=== PATIENT | female | born 1990 | race Caucasian/White ===

== ENCOUNTER 2017-03-23 21:01 | Emergency (ER) | payer OTHER ==
--- NOTE | 2017-03-23 23:39 | ED NURSING NOTES ---
Clinical Report - Nurses [facility] [address] [place] [address] 03/23/2017 21:02 [id number] Triage time 21:57 Cricket 2016. Acuity: LEVEL 3. Chief Complaint: VOMITING. SEPSIS SCREEN: Sepsis Screen: negative. Negative (no infection suspected/documented). ESTRADA COMA SCORE: [place] Coma Scale: 15- eyes open spontaneously (4); best verbal response- oriented x 4 (5); best motor response- obeys commands (6). --22:00 Jessica Moreno 21:56 03/23/17. BP: 119/80. HR: 77. RR: 20. O2 saturation: 95% on room air. Temp: 98 F (oral). Pain level now: 0/10. --22:00 Jessica Moreno. Weight: 74.8 kg stated. Height/Length: 64 inches Per Patient. BMI: 28.3. --21:58 Jessica Moreno. Medications None. --21:58 Jessica Moreno. Medication/allergy information source: the patient. --22:00 Jessica Moreno. Allergies No Known Drug Allergy. --21:58 Jessica Moreno. History Arrived by private vehicle. Historian: patient. Accompanied by family. Primary physician (ace jefferson). Onset. (1 weeks). ( Patient reports vomiting for one week. She states that she has had episodes like this in the past. 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 Patient denies abdominal pain. She denies chance of . Patient reports she has not been able to keep food or fluid down for a week.). No fever. PAST MEDICAL HX: Immunizations: up-to-date. Last normal menstrual period now. SOCIAL HX: Former smoker, end date 12/2016. Occasional alcohol use. History of drug use: marijuana. No infectious disease exposure. ABUSE ASSESSMENT: No report of abuse. FALL RISK ASSESSMENT: Fall risk assessment completed. No fall risk identified. NUTRITIONAL RISK ASSESSMENT: The nutritional risk assessment revealed no deficiencies. FUNCTIONAL ASSESSMENT: Functional assessment: no impairments noted. LEARNING NEEDS ASSESSMENT: The learning needs assessment revealed no barriers. SKIN INTEGRITY ASSESSMENT: Skin integrity risk assessment completed. No skin integrity risk identified. --22:00 Jessica Moreno. PROBLEMS: Vomiting. Tendonitis. Exercise induced asthma. --21:58 Jessica Moreno. ADDITIONAL SURGERIES: no known surgeries. Interventions ID band on patient. To treatment room. --22:00 Jessica Moreno. PHYSICAL ASSESSMENT GENERAL / NEURO / PSYCH: Alert. Oriented X 4. Appears in no acute distress. HEENT: Pupils equal, round and reactive to light. Mucous membranes are pink. RESPIRATORY: Respirations not labored. CVS: Normal sinus rhythm noted. Pulses within normal limits. GI / : Abdomen soft and nontender. SKIN: Skin is warm and dry. Normal skin turgor. --22: Jessica Moreno. NURSING PROGRESS NOTES :03/23/17. Pulse oximeter and NIBP monitor placed on patient; monitor alarms on. Patient gowned. Reassurance given to the patient. Two patient identifiers checked. Call light placed in reach. Side rails up x 1. Bed placed in lowest position. Brakes of bed on. Patient ready for evaluation- chart flagged and ED physician notified. --22: Jessica Moreno 22:11 03/23/2017 Site #1 started via IV in the right antecubital space with an 20g angiocath, with aseptic technique and good blood return; one attempt. Blood drawn: rainbow set. Labeled in the presence of the patient and sent to the lab. Saline lock flushed with 10 mL saline. --22:26 Jessica Moreno 22:03/23/2017 Started bag #1 1000 mL IV Fluids IV NS (Saline); at 1000 mL/hr over 1 hour(s) via site #1. Allergies verified and confirmed 5 rights. IV patency established. IV site checked: no pain, redness, or swelling. IV flushed thoroughly pre- and post-medication administration. --: Jessica Moreno 22:03/23/2017 Zofran (Ondansetron HCl) IVP 4 mg given over 1 minute(s) via site #1. Allergies verified and confirmed 5 rights. IV patency established. IV site checked: no pain, redness, or swelling. IV flushed thoroughly pre- and post-medication administration. IVP given by RN. --22: Jessica Moreno Patient ID band checked for patient name and birthdate: patient confirmed. Instructions provided to collect clean catch urine and patient verbalized understanding. Clean catch urine collected with return of yellow-colored clear urine; sample sent to lab for urinalysis, culture and HCG. Specimen labeled in the presence of the patient. --22:27 Jessica Moreno Patient ID band checked for patient name and birthdate: patient confirmed. Blood samples drawn from the right antecubital space peripheral IV site with Vacutainer by nurse ; labeled in presence of the patient and sent to lab: rainbow set. Additional blood sent to lab. Line flushed with 10 mL normal saline post blood draw. --:27 Jessica Moreno K: 2.9. Nurse practitioner notified. --22:56 Jolanta Drummond RThaddeusNThaddeus ( no orders rcvd). --22:56 Jolanta Drummond R.NThaddeus ( Patient refusing potassium at this time, states she feels sick to her stomach. Patient given medications and will re-evaluate.). --23:06 Jessica Moreno 23:06 03/23/17. BP: 115/80. HR: 66. RR: 20. O2 saturation: 100% on room air. --23:06 Jessica Moreno 23:10 03/23/2017 Zofran (Ondansetron HCl) IVP 4 mg given over 1 minute(s) via site #1. Allergies verified and confirmed 5 rights. IV patency established. IV site checked: no pain, redness, or swelling. IV flushed thoroughly pre- and post-medication administration. IVP given by RN. --23:10 Jessica Moreno 23:12 03/23/2017 Zofran (Ondansetron HCl) IVP 4 mg given over 2 minute(s) via site #1. Allergies verified and confirmed 5 rights. IV patency established. IV site checked: no pain, redness, or swelling. IV flushed thoroughly pre- and post-medication administration. IVP given by RN. --23:27 Jessica Moreno 23:29 03/23/2017 K-DUR (Potassium Chloride Kristine ER) PO Tablets 40 meq given. Allergies verified and confirmed 5 rights. --23:29 Jessica Moreno EKG time: (23:19). EKG was performed and shown to the ED physician. --23:50 Casandra Ordoñez 23:30 03/23/2017 IV Fluids IV NS Discontinued: bag #1 completed. Total amount infused: 1000 mL. IV patency established. IV site checked: no pain, redness, or swelling. IV flushed thoroughly. --23:51 Jessica Moreno 23:54 03/23/2017 Reglan (Metoclopramide HCl) IVP 10 mg given. via site #1. Allergies verified and confirmed 5 rights. IV patency established. IV site checked: no pain, redness, or swelling. IV flushed thoroughly pre- and post-medication administration. IVP given by RN (given sivp). --23:59 Jesica Groves R.N. ( pt reports improvement in nausea "it's starting to go away" reglan being given sivp , pt denies pain, preparing pt for dispo home. s/o at bedside). --00:00 Jesica Groves R.N. Patient identifiers checked. Call light placed in reach. Side rails up. Bed placed in lowest position. Brakes of bed on. --00:01 Jesica Groves R.N. 00:00 03/24/17. BP: 132/94. HR: 68. RR: 15. O2 saturation: 96%. Pain level now: 0/10. --00:01 Jesica Groves R.N. DISPOSITION / DISCHARGE 00:10 03/24/2017 Site #1 removed upon discharge. Bandaid applied. --00:10 Jesica Grvoes R.N. Condition at departure: improved. No learning barriers present. Discharge instructions provided and reviewed with the patient. Reviewed medication(s) information. Prescription(s) given to the patient. Patient verbalized understanding. Written instructions provided in Malagasy. The patient was discharged by the nurse practitioner. She was discharged home and accompanied by spouse. She left the Emergency Department ambulatory and via private vehicle. Spouse driving. --00:11 Jesica Groves R.N. 00:09 03/24/17. BP: 127/72. HR: 81. RR: 15. O2 saturation: 100%. Temp: 97.8 F. Pain level now: 0/10. --00:11 Jesica Groves R.N. Locked/Released at 03/24/2017 6:47 by Jessica Moreno,
--- NOTE | 2017-03-23 23:39 | ED CLINICAL REPORT ---
Clinical Report - Physicians/Mid Levels [facility] [address] [place] [address] 03/23/2017 21:02 Patient: BHAVIN REMY Time Seen: 21:55; initial patient contact, initial documentation, patient care assumed. Arrived- By private vehicle. Historian- patient. HISTORY OF PRESENT ILLNESS Chief Complaint: VOMITING. This started about 1 weeks ago and is still present. It was abrupt in onset and has been constant. No recent travel. She has had nausea and vomiting. No diarrhea, black stools, bloody stools, constipation or flank pain. No history of possible bad food exposure, known contact with a sick individual or change in routine. Has not recently been camping or on antibiotics. The illness is described as moderate. 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 Similar symptoms previously: Chronically, as bad. Recent medical care: Not recently seen/assessed. REVIEW OF SYSTEMS No fever, difficulty with urination, dark urine, chest pain or difficulty breathing. No vaginal discharge. Denies current . All systems otherwise negative, except as recorded above. PAST HISTORY See nurses notes. PROBLEMS: Vomiting. Tendonitis. Exercise induced asthma. --21:58 Jessica Moreno. ADDITIONAL SURGERIES: no known surgeries. SOCIAL HISTORY Never smoker. Occasional alcohol use. History of heavy drug use: marijuana. No recent travel. Is a local resident. FAMILY HISTORY Negative. ADDITIONAL NOTES The nursing notes have been reviewed with agreement regarding the chief complaint, HPI, ROS, PMH and patient medications and allergies. PHYSICAL EXAM Vital Signs: 03/23/2017 21:56 BP: 119/80. HR: 77. RR: 20. O2 saturation: 95%. Temp: 98 F. Pain level now: 0/10. Have been reviewed as normal and appear to be correct. Appearance: Alert. Oriented X3. No acute distress. Eyes: Pupils equal, round and reactive to light. Eyes normal inspection. Neck: Normal inspection. Neck supple. CVS: Normal heart rate and rhythm. Heart sounds normal. Pulses normal. Respiratory: No respiratory distress. Breath sounds normal. Abdomen: Soft and nontender. Bowel sounds normal. No organomegaly. No mass. Back: Normal inspection. Skin: Skin warm and dry. Normal skin color. No rash. Normal skin turgor. Extremities: Extremities exhibit normal ROM. No lower extremity edema. Neuro: Oriented X 3. No motor deficit. No sensory deficit. LABS, X-RAYS, AND EKG EKG: EKG time: (2319). No acute process. No acute ischemia. Normal EKG. Rate: 62. Normal EKG. The study has been interpreted contemporaneously by me (and Dr Duron). The EKG appears to be a good tracing. Interpretation time: 232. Laboratory Tests: UA-Culture if indicated: (LARRY: 03/23/2017 22:05) ( [facility] 03/23/2017 22:35) Final results Test Result Flag Units (Reference) URINE COLOR YELLOW URINE APPEARANCE CLEAR URINE GLUCOSE NEGATIVE (NEGATIVE) URINE BILIRUBIN NEGATIVE (NEGATIVE) URINE KETONE NEGATIVE (NEGATIVE) URINE SPECIFIC GRAVITY <= 1.005 L (1.010-1.030) URINE PH 6.0 (5.0-8.0) URINE PROTEIN NEGATIVE (NEGATIVE) URINE UROBILINOGEN 0.2 EU/dL (0.2-1.0) URINE NITRITE NEGATIVE (NEGATIVE) URINE BLOOD NEGATIVE (NEGATIVE) URINE LEUK ESTERASE NEGATIVE (NEGATIVE) URINE RBC RARE rbc/hpf (0-1) URINE WBC 0-1 wbc/hpf (0-1) URINE EPITHELIAL CELLS 1-3 EPI/hpf (0-5) URINE BACTERIA NONE SEEN (NONE SEEN) URINE COMMENT CULT NOT INDICATED URINE CULTURES ARE SET-UP BASED ON THE FOLLOWING CRITERIA:POSITIVE NITRITEPOSITIVE LEUKOCYTE ESTERASEGREATER THAN 10 WHITE BLOOD CELLSMODERATE (2+) OR GREATER BACTERIA Urine: (LARRY: 03/23/2017 22:05) ( [facility] 03/23/[place] 22:31) Final results Test Result Flag Units (Reference) URINE NEGATIVE CBC w Diff: (LARRY: 03/23/2017 22:05) ( Msg[facility]d 03/23/2017 22:31) Final results Test Result Flag Units (Reference) WHITE BLOOD COUNT 12.7 H K/uL (4.5-11.5) RED BLOOD COUNT 5.43 H M/uL (4.00-5.20) HEMOGLOBIN 15.1 gm/dL (12.0-16.0) HEMATOCRIT 44.8 % (36.0-46.0) MEAN CELL VOLUME 83 fL (80-100) MEAN CORPUSCULAR HGB 28 pg (26-34) MEAN CORPUSCULAR HGB CONC 34 g/dL (31-37) RED CELL DISTRIBUTION WIDTH 12.1 % (11.6-14.8) PLATELET COUNT 354 K/uL (150-400) LYMPH % 24.7 L % (25-40) MONO % 4.0 % (3-14) GRANULOCYTE % 71.3 (53-90) Urine Drug Screen: (LARRY: 03/23/2017 22:05) ( Msg[facility] 03/23/2017 22:49) Final results Test Result Flag Units (Reference) AMPHETAMINE/METHAMPHETAMINE NEGATIVE (NEGATIVE) BARBITURATE NEGATIVE (NEGATIVE) BENZODIAZEPINE NEGATIVE (NEGATIVE) CANNABINOID POSITIVE H (NEGATIVE) COCAINE NEGATIVE (NEGATIVE) ECSTASY NEGATIVE (NEGATIVE) METHADONE NEGATIVE (NEGATIVE) OPIATE NEGATIVE (NEGATIVE) The urine drug screen is a qualitative screening test fordrug overdose and abuse. All screen results should beconsidered as presumptive.Drugs screened for are as follows:BenzodiazepinesCocaineAmphetamines/MetamphetaminesTHC (Tetrahydrocannabinol)OpiatesBarbituratesEcstasyMethadonePositive results are unconfirmed. For confirmation, notifythe lab for the specimen to be sent to the reference lab.All confirmations must be performed by a differentmethodology.The ingestion of natural herbal and plant productscontaining Ephedra/Ephedra metabolites can produce in urineone or more substances capable of cross reacting withamphetamine/methamphetamine immunoassays. These testsprovide a preliminary result only. A more specificalternative chemical method must be used to obtain aconfirmed analytical result. CMP: (LARRY: 03/23/2017 22:05) ( MsgRcvd 03/23/2017 22:53) Final results Test Result Flag Units (Reference) GLUCOSE 114 H mg/dL (70-110) BUN 11 mg/dL (7-18) CREATININE 0.9 mg/dL (0.6-1.3) Estimated GFR >60 mL/min Estimated GFR- >60 mL/min Note: Persistent reduction over 3 months in eGFR<60 mL/min/1.73 m2 defines CKD. Patients with eGFR values>=60 mL/min/1.73 m2 may also have CKD if evidence ofpersistent proteinuria. Additional information may be foundat www.kidney.org. SODIUM 129 L mmol/L (136-145) POTASSIUM 2.9 *L mmol/L (3.5-5.1) CRITICAL RESULTS CALLEDCalled to ALIRIO 03/23/17 2252Were 2 patient identifiers used? YWas the result read back? Y CHLORIDE 90 L mmol/L (98-107) CARBON DIOXIDE 32 mmol/L (21-32) CALCIUM 9.3 mg/dL (8.5-10.1) TOTAL PROTEIN 8.1 g/dL (6.4-8.2) ALBUMIN 4.4 g/dL (3.3-5.0) BILIRUBIN, TOTAL 1.1 H mg/dL (0.0-1.0) ALKALINE PHOSPHATASE 55 U/L (46-116) AST (SGOT) 15 U/L (15-37) ALT (SGPT) 20 U/L (12-78) LIPASE 298 U/L (73-393) AMYLASE 101 U/L (25-115) MAGNESIUM 2.3 mg/dL (1.8-2.4) . PROGRESS AND PROCEDURES Course of Care: 2338. no vomiting here, but pt c/o nausea since K pills. 03/23/2017 23:06 BP: 115/80. HR: 66. RR: 20. O2 saturation: 100%. Patient counseled in person regarding the patient's stable condition, test results and diagnosis. 23:34. Differential Diagnosis: I considered gastritis, peptic ulcer disease, gastroesophageal reflux disease, gastroparesis, Crohn's disease, ulcerative colitis, gastric outlet obstruction, colon cancer, gastroenteritis, cholecystitis, pancreatitis, viral syndrome, enterocolitis, urinary tract infection, hepatitis, sepsis, drugs, hyperthyroidism, hyperparathyroidism, and psychogenic etiology as a possible cause of vomiting in this patient. This is a partial list of diagnoses considered. Above considerations are based on history, physical exam, reassessment and laboratory data. Differential diagnosis was discussed with patient. Disposition: Discharged home in good and improved condition (23:38). Condition: good and stable. CLINICAL IMPRESSION Intractable vomiting with nausea and dehydration. No volume depletion. Not bilious. Hypokalemia INSTRUCTIONS Take clear liquids only (frequent sips) for the next 24 hours until better. May continue medications with sips only. Advance diet as tolerated. Avoid. Warnings: GENERAL WARNINGS: Return or contact your physician immediately if your condition worsens or changes unexpectedly, if not improving as expected, or if other problems arise. SPECIFICALLY, return if you develop pain in the abdomen or pelvis, fever, the inability to keep fluids down, blood in vomitus, blood in diarrhea, fainting or lightheadedness. Prescription Medications: Reglan 10 mg tablets: take 1 orally every 6 hours as needed for nausea or vomiting. Dispense twenty (20). No refills. Follow-up: Follow up with your doctor in about two days even if well. Call for an appointment. Summary of care provided to patient. Understanding of the discharge instructions verbalized by patient. (Electronically signed by Sangeeta Dickey A.R.N.P. 03/25/2017 19:02)
--- NOTE | 2017-03-23 23:39 | ED ORDER SUMMARY ---
..... Patient: BHAVIN REMY OrderSheet [facility] VisitID: [id number] [place] [address] 26y, F Registration Date/Time: 03/23/2017 ORDER SHEET Weight: 74.8 kg (stated) Allergies: No Known Drug Allergy GENERAL ORDERS: CBC w Diff Urgent (22:16 03/23/2017 HBivens A.R.N.P.) (Ack 22:17 AMcQuoid ER Tech1) (23:27 HSoule) CMP Urgent (22:16 03/23/2017 HBivens A.R.N.P.) (Ack 22:17 AMcQuoid ER Tech1) (23:27 HSoule) UA-Culture if indicated Urgent (22:16 03/23/2017 HBivens A.R.N.P.) (Ack 22:17 AMcQuoid ER Tech1) (23:27 HSoule) Urine Drug Screen Urgent (22:16 03/23/2017 HBivens A.R.N.P.) (Ack 22:17 AMcQuoid ER Tech1) (23:27 HSoule) Urine Urgent (22:16 03/23/2017 HBivens A.R.N.P.) (Ack 22:17 AMcQuoid ER Tech1) (23:27 HSoule) Amylase Urgent (22:16 03/23/2017 HBivens A.R.N.P.) (Ack 22:17 AMcQuoid ER Tech1) (23:27 HSoule) Lipase Urgent (22:16 03/23/2017 HBivens A.R.N.P.) (Ack 22:17 AMcQuoid ER Tech1) (23:27 HSoule) EKG - ER Stat (22:52 03/23/2017 HBivens A.R.N.P.) (Ack 22:56 AMcQuoid ER Tech1) (23:27 HSoule) MEDICATION ORDERS: K-Dur PO 40 meq (Do not crush or chew, NOW) (22:52 03/23/2017 HBivens A.R.N.P.) (Ack 22:59 HSoule) (Hold 23:05 HSoule) (23:29 HSoule) IV FLUIDS: IV NS : initial bolus 1000 mL (1000 mL/hr), then none - (NOW) (22:15 03/23/2017 HBivens A.R.N.P.) (22:26 HSoule) Zofran IV 4 mg (NOW) (22:16 03/23/2017 HBivens A.R.N.P.) (22:26 HSoule) IV Saline Lock (22:16 03/23/2017 HBivens A.R.N.P.) (22:26 HSoule) Zofran IV 4 mg (NOW) (23:06 03/23/2017 HBivens A.R.N.P.) (23:10 HSoule) Reglan IV 10 mg (NOW) (23:39 03/23/2017 HBivens A.R.N.P.) (Ack 23:50 HSoule) (23:59 Anuja R.N.) ORDER SHEET NOTES: [Electronically signed by Jessica Moreno (06:47 03/24/2017)] [Electronically signed by Sangeeta Dickey A.R.N.P. (19:02 03/25/2017)] [Electronically locked/signed by Jessica Moreno (06:47 03/24/2017)]
--- NOTE | 2017-03-23 23:39 | ED ORDER SUMMARY ---
..... Patient: BHAVIN REMY OrderSheet [facility] VisitID: [id number] [place] [address] 26y, F Registration Date/Time: 03/23/2017 ORDER SHEET Weight: 74.8 kg (stated) Allergies: No Known Drug Allergy GENERAL ORDERS: CBC w Diff Urgent (22:16 03/23/2017 HBivens A.R.N.P.) (Ack 22:17 AMcQuoid ER Tech1) (23:27 HSoule) CMP Urgent (22:16 03/23/2017 HBivens A.R.N.P.) (Ack 22:17 AMcQuoid ER Tech1) (23:27 HSoule) UA-Culture if indicated Urgent (22:16 03/23/2017 HBivens A.R.N.P.) (Ack 22:17 AMcQuoid ER Tech1) (23:27 HSoule) Urine Drug Screen Urgent (22:16 03/23/2017 HBivens A.R.N.P.) (Ack 22:17 AMcQuoid ER Tech1) (23:27 HSoule) Urine Urgent (22:16 03/23/2017 HBivens A.R.N.P.) (Ack 22:17 AMcQuoid ER Tech1) (23:27 HSoule) Amylase Urgent (22:16 03/23/2017 HBivens A.R.N.P.) (Ack 22:17 AMcQuoid ER Tech1) (23:27 HSoule) Lipase Urgent (22:16 03/23/2017 HBivens A.R.N.P.) (Ack 22:17 AMcQuoid ER Tech1) (23:27 HSoule) EKG - ER Stat (22:52 03/23/2017 HBivens A.R.N.P.) (Ack 22:56 AMcQuoid ER Tech1) (23:27 HSoule) MEDICATION ORDERS: K-Dur PO 40 meq (Do not crush or chew, NOW) (22:52 03/23/2017 HBivens A.R.N.P.) (Ack 22:59 HSoule) (Hold 23:05 HSoule) (23:29 HSoule) IV FLUIDS: IV NS : initial bolus 1000 mL (1000 mL/hr), then none - (NOW) (22:15 03/23/2017 HBivens A.R.N.P.) (22:26 HSoule) Zofran IV 4 mg (NOW) (22:16 03/23/2017 HBivens A.R.N.P.) (22:26 HSoule) IV Saline Lock (22:16 03/23/2017 HBivens A.R.N.P.) (22:26 HSoule) Zofran IV 4 mg (NOW) (23:06 03/23/2017 HBivens A.R.N.P.) (23:10 HSoule) Reglan IV 10 mg (NOW) (23:39 03/23/2017 HBivens A.R.N.P.) (Ack 23:50 HSoule) (23:59 Anuja R.N.) ORDER SHEET NOTES: [Electronically signed by Jessica Moreno (06:47 03/24/2017)] [Electronically signed by Sangeeta Dickey A.R.N.P. (19:02 03/25/2017)] [Electronically locked/signed by Jessica Moreno (06:47 03/24/2017)]
--- NOTE | 2017-03-25 19:02 | ED MAR SUMMARY ---
..... Medication Administration Record Located Within [facility] [address] [place] [address] Patient: BHAVIN REMY Visit ID: [id number] 26y, F Weight: 74.8 kg Height/Length: 64 in BMI: 28.3 ALLERGIES: No Known Drug Allergy Start 22:03/23/2017 Jessica Moreno,, Stop 23:30 03/23/2017 Jessica Moreno, Medication Administered: IV NS (SALINE), Dose: IV Fluids over 1 hour(s), Rate: 1000 mL/hr, Dispensed: 1000 mL bag, Site: #1 right AC. Medication Ordered: IV NS : initial bolus 1000 mL (1000 mL/hr), then none - (NOW). Given 22:03/23/2017 Jessica Moreno, Medication Administered: ZOFRAN [IVP] (ONDANSETRON HCL), Dose: 4 mg IVP over 1 minute(s), Site: #1 right AC. Medication Ordered: Zofran IV 4 mg (NOW). Given 23:03/23/2017 Jessica Moreno, Medication Administered: ZOFRAN [IVP] (ONDANSETRON HCL), Dose: 4 mg IVP over 1 minute(s), Site: #1 right AC. Medication Ordered: Zofran IV 4 mg (NOW). Given 23:12 03/23/2017 Jessica Moreno, Medication Administered: ZOFRAN [IVP] (ONDANSETRON HCL), Dose: 4 mg IVP over 2 minute(s), Site: #1 right AC. Medication Ordered: Zofran IV 4 mg (NOW). Given 23:29 03/23/2017 Jessica Moreno, Medication Administered: K-DUR [PO] (POTASSIUM CHLORIDE SHEREE ER), Dose: 40 meq Tablets PO. Medication Ordered: K-Dur PO 40 meq (Do not crush or chew, NOW). Given 23:54 03/23/2017 Jesica Groves R.N. Medication Administered: REGLAN [IVP] (METOCLOPRAMIDE HCL), Dose: 10 mg IVP, Site: #1 right AC. Medication Ordered: Reglan IV 10 mg (NOW).
--- NOTE | 2017-03-25 19:02 | ED MAR SUMMARY ---
..... Medication Administration Record [facility] [address] [place] [address] Patient: BHAVIN REMY Visit ID: [id number] 26y, F Weight: 74.8 kg Height/Length: 64 in BMI: 28.3 ALLERGIES: No Known Drug Allergy Start 22:03/23/2017 Jessica Moreno,, Stop 23:30 03/23/2017 Jessica Moreno, Medication Administered: IV NS (SALINE), Dose: IV Fluids over 1 hour(s), Rate: 1000 mL/hr, Dispensed: 1000 mL bag, Site: #1 right AC. Medication Ordered: IV NS : initial bolus 1000 mL (1000 mL/hr), then none - (NOW). Given 22:03/23/2017 Jessica Moreno, Medication Administered: ZOFRAN [IVP] (ONDANSETRON HCL), Dose: 4 mg IVP over 1 minute(s), Site: #1 right AC. Medication Ordered: Zofran IV 4 mg (NOW). Given 23:03/23/2017 Jessica Moreno, Medication Administered: ZOFRAN [IVP] (ONDANSETRON HCL), Dose: 4 mg IVP over 1 minute(s), Site: #1 right AC. Medication Ordered: Zofran IV 4 mg (NOW). Given 23:12 03/23/2017 Jessica Moreno, Medication Administered: ZOFRAN [IVP] (ONDANSETRON HCL), Dose: 4 mg IVP over 2 minute(s), Site: #1 right AC. Medication Ordered: Zofran IV 4 mg (NOW). Given 23:29 03/23/2017 Jessica Moreno, Medication Administered: K-DUR [PO] (POTASSIUM CHLORIDE SHEREE ER), Dose: 40 meq Tablets PO. Medication Ordered: K-Dur PO 40 meq (Do not crush or chew, NOW). Given 23:54 03/23/2017 Jesica Groves R.N. Medication Administered: REGLAN [IVP] (METOCLOPRAMIDE HCL), Dose: 10 mg IVP, Site: #1 right AC. Medication Ordered: Reglan IV 10 mg (NOW).
--- NOTE | 2017-03-25 19:02 | ED MED RECONCILIATION SUMMARY ---
Patient: BHAVIN REMY Medication Reconciliation Report [facility] VisitID: [id number] [address] [place] [address] 26y, F Registration Date/Time: 03/23/2017 Weight: 74.8 kg Height/Length: 64 in. BMI: 28.3 ALLERGIES: No Known Drug Allergy The patient's Home Medications are listed below: NONE. The source(s) of the original Home Medication information: patient The following Medications were given to the patient in the Emergency Department: IV NS IV Fluids bolus 0, then 1000 mL/hr, administered: 03/23/2017 10:26:00 PM Zofran [IVP] IVP 4 mg, administered: 03/23/2017 10:26:00 PM Zofran [IVP] IVP 4 mg, administered: 03/23/2017 11:10:00 PM Zofran [IVP] IVP 4 mg, administered: 03/23/2017 11:12:00 PM K-DUR [PO] PO 40 meq, administered: 03/23/2017 11:29:00 PM Reglan [IVP] IVP 10 mg, administered: 03/23/2017 11:54:00 PM The following Medications were prescribed to the patient: Reglan 10 mg tablets: take 1 orally every 6 hours as needed for nausea or vomiting. Dispense twenty (20). No refills. -- Sangeeta Dickey A.R.N.P.
--- NOTE | 2017-03-25 19:02 | ED DISCHARGE INSTRUCTIONS ---
Patient: BHAVIN REMY General Instructions [facility] VisitID: [id number] [place] [address] 26y, F Registration Date/Time: 03/23/2017 Intractable vomiting with nausea and dehydration. No volume depletion. Not bilious. Hypokalemia INSTRUCTIONS Take clear liquids only (frequent sips) for the next 24 hours until better. May continue medications with sips only. Advance diet as tolerated. Avoid. Warnings: GENERAL WARNINGS: Return or contact your physician immediately if your condition worsens or changes unexpectedly, if not improving as expected, or if other problems arise. SPECIFICALLY, return if you develop pain in the abdomen or pelvis, fever, the inability to keep fluids down, blood in vomitus, blood in diarrhea, fainting or lightheadedness. Prescription Medications: Reglan 10 mg tablets: take 1 orally every 6 hours as needed for nausea or vomiting. Dispense twenty (20). No refills. Follow-up: Follow up with your doctor in about two days even if well. Call for an appointment. Summary of care provided to patient. Understanding of the discharge instructions verbalized by patient. ADDITIONAL INFORMATION Vomiting [6Yr-Adult] Vomiting is a common symptom that may be due to different causes. These include gastroenteritis ("stomach flu"), food poisoning and gastritis. There are other more serious causes of vomiting which may be hard to diagnose early in the illness. Therefore, it is important to watch for the warning signs listed below. The main danger from repeated vomiting is dehydration. This is due to excess loss of water and minerals from the body. When this occurs, body fluids must be replaced. Home Care: If symptoms are severe, rest at home for the next 24 hours. You may use acetaminophen (Tylenol) or ibuprofen (Motrin, Advil) to control fever, unless another medicine was prescribed. [NOTE : If you have chronic liver or kidney disease or ever had a stomach ulcer or GI bleeding, talk with your doctor before using these medicines.] (Aspirin should never be used in anyone under 18 years of age who is ill with a fever. It may cause severe liver damage.) Avoid tobacco and alcohol use, which may worsen your symptoms. If medicines for vomiting were prescribed, take as directed. Once vomiting stops, then follow these guidelines: During The First 12-24 Hours follow the diet below: FRUIT JUICES: Apple, grape juice, clear fruit drinks, and electrolyte replacement drinks. BEVERAGES: Soft drinks without caffeine; mineral water (plain or flavored), decaffeinated tea and coffee. SOUPS: Clear broth, consomm and bouillon DESSERTS: Plain gelatin, popsicles and fruit juice bars. As you feel better, you may add 6-8 ounces of yogurt per day. During The Next 24 Hours you may add the following to the above: Hot cereal, plain toast, bread, rolls, crackers Plain noodles, rice, mashed potatoes, chicken noodle or rice soup Unsweetened canned fruit (avoid pineapple), bananas Limit caffeine and chocolate. No spices or seasonings except salt. During The Next 24 Hours Gradually resume a normal diet, as you feel better and your symptoms lessen. Follow Up with your doctor as advised if you are not improving over the next 2-3 days. Get Prompt Medical Attention if any of the following occur: Constant right-sided lower abdominal pain or increasing general abdominal pain Continued vomiting (unable to keep liquids down) for 24 hours Frequent diarrhea (more than 5 times a day); blood (red or black color) or mucus in diarrhea Reduced urine output or extreme thirst Weakness, dizziness or fainting Unusually drowsy or confused Fever of 100.4F (38C) oral or higher, not better with fever medication Yellow color of the eyes or skin Hypokalemia Hypokalemia means a low level of potassium in the blood. This most often occurs in patients who take diuretics (water pills). It can also occur due to severe vomiting or diarrhea. A mild case usually causes no symptoms. It is only found with blood testing. More severe potassium loss causes generalized weakness, muscle or abdominal cramping, heart palpitations (rapid or irregular heartbeats) and low blood pressure. Home Care: 1) Take any potassium supplements prescribed. 2) Eat foods rich in potassium. The highest amount is found in artichoke, baked potatoes, spinach, cantaloupe, honeydew melon, cod, halibut, salmon, and scallops. White, red, or good beans are also very good sources. A modest amount is found in orange juice, bananas, carrots, and tomato juice. 3) Certain types of diuretics (water pills), such as Lasix (furosemide), require that you take potassium supplements for as long as you take the diuretic pills. If you are taking a diuretic, discuss the need for potassium supplements with your doctor. Follow Up with your doctor for a repeat blood test within the next week or as advised by our staff. Get Prompt Medical Attention if any of the following occur: -- Increased weakness -- Feeling dizzy -- Irregular heartbeat, extra beats or very fast heart rate -- Fainting spell Clear Liquid Diet Clear liquids are any liquid that you can see through as well as those that are very easy to digest. This is used while the body is recovering from irritation or infection of the stomach or intestinal tract. It may also be used before special procedures or surgery. This diet is to be used no more than three days. You may include the following items. Adults Adults should drink a total of 23 quarts of liquid per day. It may be easier to drink small frequent servings rather than a few large ones. Liquids can include: Fruit juices.Strained orange juice or lemonade (no pulp), apple, grape and cranberry juice, clear fruit drinks, sports drinks Beverages.Sport drinks, sodas, mineral water (plain or flavored), tea, black coffee, liquid gelatin (add twice the recommended amount of water) Soups.Clear broth, consomm, bouillon Desserts.Plain gelatin, popsicles, fruit juice bars Children Over 2 years old The following liquids are acceptable for children over age 2: Fruit juices.Strained orange juice or lemonade (no pulp), apple, grape and cranberry juice, clear fruit drinks Beverages. Sports drinks, sodas, mineral water (plain or flavored), tea, liquid gelatin (add twice the recommended amount of water) Soups. Clear broth, consomm, bouillon Desserts. Plain gelatin, popsicles, fruit juice bars Children under 2 years old Oral rehydration fluids such are available at drug stores and most grocery stores without a prescription. Toole Diet A bland diet is used for patients with an upset stomach. It consists of foods that are mild and easy to digest. It is better to eat small frequent meals rather than three large meals a day. BEVERAGES OK: Fruit juices, non-caffeinated teas and coffee, non-carbonated mackey AVOID: Carbonated beverage, caffeinated tea and coffee, all alcoholic beverages BREAD OK: Refined white, wheat or rye bread, ying or soda crackers, Niyah toast, plain rolls, bagels AVOID: Whole-grain bread CEREAL OK: Refined cereals: cooked or ready to eat AVOID: Whole grain cereals and granola, or those containing bran, seeds or nuts DESSERTS OK: Peanut butter and all others except those to "avoid" AVOID: Chocolate, cocoa, coconut, popcorn, nuts, seeds, jam, marmalade FRUITS OK: Canned, cooked, frozen or fresh fruits without seeds or tough skin AVOID: Olives, skin and seeds of fruit MEATS OK: All fresh or preserved meat, fish and fowl AVOID: Any that are prepared with those spices to "avoid" CHEESE & EGGS OK: Eggs, cottage cheese, cream cheese, other cheeses AVOID: All cheeses made with those spices to "avoid" POTATOES & PASTA OK: Potato, rice, macaroni, noodles, spaghetti AVOID: None SOUPS OK: All soups without heavy seasoning AVOID: Soups made with those spices to "avoid" VEGETABLES OK: Canned, cooked, fresh or frozen mildly flavored vegetables without seeds, skins or coarse fiber AVOID: Vegetables prepared with those spices to "avoid"; skin and seeds of vegetables and those with coarse fiber SPICES OK: Salt, lemon and enterprise juice, vinegar, all extracts, francia, cinnamon, thyme, mace, allspice, paprika AVOID: [place] powder, cloves, pepper, seed spices, garlic, gravy pickles, highly seasoned salad dressings Clear Liquid Diet Clear liquids are any liquid that you can see through as well as those that are very easy to digest. This is used while the body is recovering from irritation or infection of the stomach or intestinal tract. It may also be used before special procedures or surgery. This diet is to be used no more than three days. You may include the following items. Adults Adults should drink a total of 23 quarts of liquid per day. It may be easier to drink small frequent servings rather than a few large ones. Liquids can include: Fruit juices.Strained orange juice or lemonade (no pulp), apple, grape and cranberry juice, clear fruit drinks, sports drinks Beverages.Sport drinks, sodas, mineral water (plain or flavored), tea, black coffee, liquid gelatin (add twice the recommended amount of water) Soups.Clear broth, consomm, bouillon Desserts.Plain gelatin, popsicles, fruit juice bars Children Over 2 years old The following liquids are acceptable for children over age 2: Fruit juices.Strained orange juice or lemonade (no pulp), apple, grape and cranberry juice, clear fruit drinks Beverages. Sports drinks, sodas, mineral water (plain or flavored), tea, liquid gelatin (add twice the recommended amount of water) Soups. Clear broth, consomm, bouillon Desserts. Plain gelatin, popsicles, fruit juice bars Children under 2 years old Oral rehydration fluids such are available at drug stores and most grocery stores without a prescription. Metoclopramide Hydrochloride Oral tablet What is this medicine? METOCLOPRAMIDE (met oh kloe PRA mide) is used to treat the symptoms of gastroesophageal reflux disease (GERD) like heartburn. It is also used to treat people with slow emptying of the stomach and intestinal tract. How should I use this medicine? Take this medicine by mouth with a glass of water. Follow the directions on the prescription label. Take this medicine on an empty stomach, about 30 minutes before eating. Take your doses at regular intervals. Do not take your medicine more often than directed. Do not stop taking except on the advice of your doctor or health respiratory care instructor. A special MedGuide will be given to you by the pharmacist with each prescription and refill. Be sure to read this information carefully each time. Talk to your responder regarding the use of this medicine in children. Special care may be needed. What side effects may I notice from receiving this medicine? Side effects that you should report to your doctor or health respiratory care instructor as soon as possible: allergic reactions like skin rash, itching or hives, swelling of the face, lips, or tongue abnormal production of milk in females breast enlargement in both males and females change in the way you walk difficulty moving, speaking or swallowing drooling, lip smacking, or rapid movements of the tongue excessive sweating fever involuntary or uncontrollable movements of the eyes, head, arms and legs irregular heartbeat or palpitations muscle twitches and spasms unusually weak or tired Side effects that usually do not require medical attention (report to your doctor or health respiratory care instructor if they continue or are bothersome): change in sex drive or performance depressed mood diarrhea difficulty sleeping headache menstrual changes restless or nervous What may interact with this medicine? acetaminophen cyclosporine digoxin medicines for blood pressure medicines for diabetes, including insulin medicines for hay fever and other allergies medicines for depression, especially an Monoamine Oxidase Inhibitor (MAOI) medicines for Parkinson's disease, like levodopa medicines for sleep or for pain tetracycline What if I miss a dose? If you miss a dose, take it as soon as you can. If it is almost time for your next dose, take only that dose. Do not take double or extra doses. Where should I keep my medicine? Keep out of the reach of children. Store at room temperature between 20 and 25 degrees C (68 and 77 degrees F). Protect from light. Keep container tightly closed. Throw away any unused medicine after the expiration date. What should I tell my health care provider before I take this medicine? They need to know if you have any of these conditions: breast cancer depression diabetes heart failure high blood pressure kidney disease liver disease Parkinson's disease or a movement disorder pheochromocytoma seizures stomach obstruction, bleeding, or perforation an unusual or allergic reaction to metoclopramide, procainamide, sulfites, other medicines, foods, dyes, or preservatives or trying to get breast-feeding What should I watch for while using this medicine? It may take a few weeks for your stomach condition to start to get better. However, do not take this medicine for longer than 12 weeks. The longer you take this medicine, and the more you take it, the greater your chances are of developing serious side effects. If you are an elderly patient, a female patient, or you have diabetes, you may be at an increased risk for side effects from this medicine. Contact your doctor immediately if you start having movements you cannot control such as lip smacking, rapid movements of the tongue, involuntary or uncontrollable movements of the eyes, head, arms and legs, or muscle twitches and spasms. Patients and their families should watch out for worsening depression or thoughts of suicide. Also watch out for any sudden or severe changes in feelings such as feeling anxious, agitated, panicky, irritable, hostile, aggressive, impulsive, severely restless, overly excited and hyperactive, or not being able to sleep. If this happens, especially at the beginning of treatment or after a change in dose, call your doctor. Do not treat yourself for high fever. Ask your doctor or health respiratory care instructor for advice. You may get drowsy or dizzy. Do not drive, use machinery, or do anything that needs mental alertness until you know how this drug affects you. Do not stand or sit up quickly, especially if you are an older patient. This reduces the risk of dizzy or fainting spells. Alcohol can make you more drowsy and dizzy. Avoid alcoholic drinks. You have been given the following additional information: Vomiting (6Y-Adult) Hypokalemia Diet, Clear Liquid Diet, Toole (Adult) Diet, Clear Liquid Metoclopramide Hydrochloride Oral tablet (Electronically signed by Sangeeta Dickey A.R.N.P. 03/25/2017 19:02)
--- NOTE | 2017-03-25 19:02 | ED MED RECONCILIATION SUMMARY ---
Patient: BHAVIN REMY Medication Reconciliation Report [facility] VisitID: [id number] [address] [place] [address] 26y, F Registration Date/Time: 03/23/2017 Weight: 74.8 kg Height/Length: 64 in. BMI: 28.3 ALLERGIES: No Known Drug Allergy The patient's Home Medications are listed below: NONE. The source(s) of the original Home Medication information: patient The following Medications were given to the patient in the Emergency Department: IV NS IV Fluids bolus 0, then 1000 mL/hr, administered: 03/23/2017 10:26:00 PM Zofran [IVP] IVP 4 mg, administered: 03/23/2017 10:26:00 PM Zofran [IVP] IVP 4 mg, administered: 03/23/2017 11:10:00 PM Zofran [IVP] IVP 4 mg, administered: 03/23/2017 11:12:00 PM K-DUR [PO] PO 40 meq, administered: 03/23/2017 11:29:00 PM Reglan [IVP] IVP 10 mg, administered: 03/23/2017 11:54:00 PM The following Medications were prescribed to the patient: Reglan 10 mg tablets: take 1 orally every 6 hours as needed for nausea or vomiting. Dispense twenty (20). No refills. -- Sangeeta Dickey A.R.N.P.
== END 2017-03-24 00:12 | disposition home or self-care (01) ==
LOC: ED SRH 21:01
DX: E86.0 Dehydration (principal); E87.6 Hypokalemia; R11.2 Nausea with vomiting, unspecified
CPT/HCPCS: 90004; 90100; 92235; 92530; 92720; 92760; 92761; 92762; 92763; 92764; 92765; 92766; 92767; 93070; 95059